=== PATIENT | female | born 1965 | race African-American/Black ===

== ENCOUNTER 2024-05-15 12:11 | Emergency (ER) | payer OTHER, SELFPAY ==
[2024-05-15 12:17] VITALS: BP 154/79
--- NOTE | 2024-05-15 12:24 | ED.GENMED ---
ED Provider Triage
<Tasha Mosley MD, Resident - Last Filed: 05/15/24 12:29>
-
Patient seen by provider in Triage?: Seen in Triage
59yo F presenting with diffuse abdominal pain that radiates to back. She has had this pain intermittently over the past 1.5 years, and has not seen a provider for this recently. Reports pain currently, rates it 5/10 on pain scale. Awake alert, no
acute distress, ambulating well. Abdomen soft, nondistended, normal bowel sounds; mild tenderness to palpation diffusely.
History of Present Illness
<Tasha Mosley MD, Resident - Last Filed: 05/15/24 12:29>
General
Chief Complaint: Abdominal Symptoms
Time Seen by Provider: 05/15/24 13:29
<Faith Rowe PA-C - Last Filed: 05/15/24 16:15>
General
Source: patient
Exam Limitations: none
History of Present Illness
History of Present Illness:
59yoF with a history of hyperlipidemia, hypothyroidism, and GERD presenting for evaluation of abdominal pain. Symptoms began yesterday. She reports intermittent stabbing pain in the center of her abdomen as well as her back. Nothing seems to make
the pain better or worse. She has had similar pains in the past and she was given a 'pill under her tongue' and the pain went away. She is requesting this currently although is unable to provide any details of this. Her pain is currently mild.
She reports nausea but denies any vomiting. She is otherwise asymptomatic and denies any fevers, chills, diarrhea, constipation, dysuria, chest pain, shortness of breath. Last bowel movement was this morning which was normal. No previous
abdominal surgeries. She has never had a colonoscopy before.
Past History
<Tasha Mosley MD, Resident - Last Filed: 05/15/24 12:29>
Past History
ED Past Medical History: Hypercholesterolemia, Psychiatric (Bipolar) and Other (Anemia)
ED Past Surgical History: None
Social History
Tobacco: Non-smoker
Alcohol: None
Drug: None
Personal: Single
Living: homeless (Staying at correction)
Employment: Not employed
Family History
Family History: Other
Phy Exam
<REYNA Rosales-Carlos A - Last Filed: 05/15/24 16:15>
General Physical Exam
General Presentation: well appearing and no apparent distress
General age: appears stated age
General Skin: warm and dry
General Habitus: normal
General Mental: alert
ENT Exam
ENT Exam: normocephalic
Pulmonary Exam
Pulmonary Exam: no respiratory distress
Gastrointestinal Exam
Gastrointestinal Exam: non tender, soft, non distended and no cva tenderness
Neurological Exam
Neurological Exam: alert
Marquez Coma Scale
Eye Opening: Spontaneous
Verbal Response: Oriented
Motor Response: Obeys Commands
GCS Total Score: 15
Musculoskeletal Exam
Musculoskeletal Exam: other (+Tenderness in bilateral paraspinal lumbar region)
Skin Exam
Skin Exam: normal color and warm/dry
Course
<Tasha Mosley MD, Resident - Last Filed: 05/15/24 12:29>
Orders/Labs/Results
Orders:
Orders
05/15/24 12:40
Complete Blood Count/No Diff Urgent
Comprehensive Metabolic Panel Urgent
Lipase Urgent
05/15/24 13:50
CT Abd/pelvis W Iv Cont Urgent
Comment:
Reason For Exam: Generalized abd pain, low back pain
Ketorolac [Toradol] 15 mg IV NOW STA
05/15/24 14:02
Urinalysis Reflex To Culture Stat
Date Specimen was Collected: 05/15/24
Time Specimen was Collected: 13:57
Abnormal Lab Results
05/15/24
12:40
WBC 4.5 L 10^3/uL
(4.8-10.8)
MPV 11.2 H fL
(7.4-10.4)
05/15/24 12:40
05/15/24 12:40
Vital Signs
Initial and Last Documented VS:
Initial Vital Signs
Temp Pulse Resp BP Pulse Ox
97.9 F 80 20 154/79 99
05/15/24 12:17 05/15/24 12:17 05/15/24 12:17 05/15/24 12:17 05/15/24 12:17
Last Documented Vital Signs
Temp Pulse Resp BP Pulse Ox
97.9 F 89 16 148/79 97
05/15/24 12:17 05/15/24 15:55 05/15/24 15:55 05/15/24 15:55 05/15/24 15:55
<Faith Rowe PA-C - Last Filed: 05/15/24 16:15>
Orders/Labs/Results
Orders:
Orders
05/15/24 12:40
Complete Blood Count/No Diff Urgent
Comprehensive Metabolic Panel Urgent
Lipase Urgent
05/15/24 13:50
CT Abd/pelvis W Iv Cont Urgent
Comment:
Reason For Exam: Generalized abd pain, low back pain
Ketorolac [Toradol] 15 mg IV NOW STA
05/15/24 14:02
Urinalysis Reflex To Culture Stat
Date Specimen was Collected: 05/15/24
Time Specimen was Collected: 13:57
Abnormal Lab Results
05/15/24
12:40
WBC 4.5 L 10^3/uL
(4.8-10.8)
MPV 11.2 H fL
(7.4-10.4)
05/15/24 12:40
05/15/24 12:40
Vital Signs
Initial and Last Documented VS:
Initial Vital Signs
Temp Pulse Resp BP Pulse Ox
97.9 F 80 20 154/79 99
05/15/24 12:17 05/15/24 12:17 05/15/24 12:17 05/15/24 12:17 05/15/24 12:17
Last Documented Vital Signs
Temp Pulse Resp BP Pulse Ox
97.9 F 89 16 148/79 97
05/15/24 12:17 05/15/24 15:55 05/15/24 15:55 05/15/24 15:55 05/15/24 15:55
<Faith Rowe PA-C - Last Filed: 05/15/24 16:15>
MDM/Problems Addressed
Differential Diagnosis Includes:
59yoF here with central abd pain and back pain x 1 day. Intermittent, currently mild. History of similar pains. She is mildly hypertensive with otherwise normal vitals. She is well appearing in no distress. No signs of peritonitis on abdominal exam.
Differential diagonsis includes but is not limited to: IBS, colitis, diverticulitis, appendicitis, musculoskeletal, nonspecific abdominal pain
Initial ED plan: Abdominal labs obtained in triage which are unremarkable including normal LFTs, lipase, renal function. Will check CT abdomen. IV Toradol for pain.
<Faith Rowe PA-C - Last Filed: 05/15/24 16:15>
*Critical Care Note
Total Time (30-74mins, 75-104mins- exclusive of procedures): Not Applicable
<Faith Rowe PA-C - Last Filed: 05/15/24 16:15>
Update Note
Update Note:
CT abdomen is negative for acute findings. UA bland without signs of infection or hematuria. No indication for hospitalization. Unclear etiology of pain. Will provide prescription for Zofran for nausea. Advised f/u with PCP and GI. ED return
precautions discussed. Patient in agreement with plan and was discharged in stable condition.
ED Attending Note
<Tasha Mosley MD, Resident - Last Filed: 05/15/24 12:29>
-
Portions of this chart may have been created with voice recognition software.� Occasional wrong word or��sound alike� substitutions may have occurred due to the inherent limitations of voice recognition software.
Discharge Plan
Departure
Patient Disposition: Home (Routine Discharge)
Date of Disposition: 05/15/24
Time of Disposition: 15:52
Patient with high blood pressure during this ER visit?: Yes
Discharge Problem:
Nonspecific abdominal pain
Instructions: Abdominal Pain
Prescriptions:
New
ondansetron 4 mg tablet,disintegrating
4 mg PO Q6H PRN (Reason: nausea and vomiting) Qty: 20 0RF
No Action
ferrous sulfate [Iron (ferrous sulfate)] 325 MG tablet
325 mg PO DAILY
docosahexaenoic acid-epa 1 CAP capsule
1 cap PO DAILY
hydroxyzine HCl 25 MG tablet
50 mg PO QIDPRN PRN (Reason: itching) Qty: 20 0RF
clotrimazole [3-Day Vaginal] 21 GM cream
21 gm VAG DAILY Qty: 1 0RF
Referrals:
David Coffman MD [Family Provider] -
Annie Mitchell DO [Active] -
Activity Restrictions/Additional Instructions:
Take Zofran as needed for nausea. Take Tylenol and ibuprofen as needed for pain.
Please follow-up with your family doctor and gastroenterology. Return to the ER with any new or worsening symptoms.
Interventions
Interventions:
*Risk Screen - Suicide Last Done: 05/15/24 12:17
*General Assessment Last Done: 05/15/24 12:17
*Neglect/Abuse Screening Last Done: 05/15/24 12:17
ED- Fall Risk Assessment Last Done: 05/15/24 13:43
VU-Yssljp-Tatymwrzux Assessment Last Done: 05/15/24 13:42
Discharge Date and Time
Print Language: QATARI
[2024-05-15 12:54] LABS: Hematocrit 38.6 % (37.0-47.0); Hemoglobin 13.1 g/dL (12.0-16.0); Mean Corp Hgb Conc. 33.9 g/dL (33.0-37.0); Mean Corpuscular Hgb 29.8 pg (27.0-31.0); Mean Corpuscular Volume 87.7 fL (81.0-99.0); Mean Platelet Volume 11.2 fL (7.4-10.4); Platelet Count 182 10^3/uL (130-400); Red Cell Dist. Width 13.1 % (11.5-14.5); White Blood Cell Count 4.5 10^3/uL (4.8-10.8)
[2024-05-15 13:12] LABS: ALT (SGPT) 21 U/L (0-35); AST (SGOT) 25 U/L (14-36); Albumin 4.8 g/dl (3.5-5.0); Alkaline Phosphatase 90 U/L (38-126); Blood Urea Nitrogen 15 mg/dl (7-17); Calcium 9.4 mg/dl (8.4-10.2); Carbon Dioxide 25 mmol/L (22-30); Chloride 100 mmol/L (98-107); Glucose 96 mg/dl (70-99); Potassium 4.1 mmol/L (3.5-5.1); Sodium 137 mmol/L (135-145); Total Bilirubin 0.7 mg/dl (0.2-1.3); Total Protein 7.8 g/dl (6.3-8.2); eGFR > 60.00
[2024-05-15 13:23] LABS: Lipase 229 U/L (23-300)
[2024-05-15] MEDS: TORADOL 15 MG IV (13:58)
[2024-05-15 14:18] LABS: Urine Albumin Negative (Neg - Trace); Urine Bilirubin Negative (Negative); Urine Character Clear (Clear); Urine Glucose Negative (Negative); Urine Ketone Negative (Negative); Urine Leukocyte Negative (Negative); Urine Nitrite Negative (Negative); Urine Occult Blood Negative (Negative); Urine Specific Gravity 1.005 (<1.030); Urine Urobilinogen Negative (Neg - 1+)
[2024-05-15 14:26] LABS: Urine Color Straw
[2024-05-15 15:55] VITALS: BP 148/79
== END 2024-05-15 15:50 | disposition home or self-care (01) ==
LOC: EMR 12:11
PROVIDERS: Physician Assistant; Student in an Organized Health Care Education/Training Program; EMERGENCY PHYSICIAN Emergency Medicine; FAMILY PHYSICIAN Family Medicine
DX: R10.84 Generalized abdominal pain (principal); E78.00 Pure hypercholesterolemia, unspecified; E03.9 Hypothyroidism, unspecified; K21.9 Gastro-esophageal reflux disease without esophagitis; F31.9 Bipolar disorder, unspecified; D64.9 Anemia, unspecified
CPT/HCPCS: 99284; 96374; 74177; 80053; 81003; 83690; 85027; Q9967

== ENCOUNTER 2025-03-30 12:16 | Emergency (ER) | payer OTHER, SELFPAY ==
[2025-03-30 12:43] VITALS: BP 161/87
[2025-03-30 13:13] LABS: Hematocrit 36.5 % (37.0-47.0); Hemoglobin 12.1 g/dL (12.0-16.0); Mean Corp Hgb Conc. 33.2 g/dL (33.0-37.0); Mean Corpuscular Volume 86.7 fL (81.0-99.0); Nucleated Red Blood Cells % 0 %; Platelet Count 186 10^3/uL (130-400); Red Cell Dist. Width 13.2 % (11.5-14.5)
[2025-03-30 13:24] LABS: ALT (SGPT) 23 U/L (0-35); AST (SGOT) 27 U/L (14-36); Albumin 4.2 g/dl (3.5-5.0); Alkaline Phosphatase 101 U/L (38-126); Blood Urea Nitrogen 14 mg/dl (7-17); Calcium 9.0 mg/dl (8.4-10.2); Carbon Dioxide 26 mmol/L (22-30); Chloride 104 mmol/L (98-107); Glucose 115 mg/dl (70-99); Lipase 241 U/L (23-300); Potassium 4.1 mmol/L (3.5-5.1); Sodium 137 mmol/L (135-145); Total Protein 7.3 g/dl (6.3-8.2); eGFR > 60.00
[2025-03-30 13:28] LABS: INR 0.96; PT 12.9 Sec (11.4-14.6)
[2025-03-30 13:34] LABS: Troponin I 0.015 ng/ml
== END 2025-03-30 15:20 | disposition left against medical advice (07) ==
LOC: EMR 12:16
PROVIDERS: EMERGENCY PHYSICIAN Emergency Medicine
DX: M54.9 Dorsalgia, unspecified (principal); Z53.21 Procedure and treatment not carried out due to patient leaving prior to being seen by health care provider
CPT/HCPCS: 80053; 83690; 84484; 85025; 85610; 93005